=== PATIENT | female | born 1970 | race African-American/Black ===

== ENCOUNTER 2022-04-16 15:26 | Emergency (ER) | payer MEDICAID ==
[~2022-04-16] VITALS: Ht 170.2 cm; Wt 113.4 kg
[2022-04-16 15:40] VITALS: BP 146/88
[2022-04-16] MEDS ORDERED: KETOROLAC TROMETH 60MG/2ML VIAL IM ONE (16:30)
[2022-04-16] MEDS ORDERED: PRED20TA2 PO (17:03)
[2022-04-16] MEDS ORDERED: TRAM-297 PO (17:03)
== END 2022-04-16 17:23 | disposition short-term general hospital (02) ==
LOC: ER 15:26
DX: M51.37 Other intervertebral disc degeneration, lumbosacral region (principal); M54.16 Radiculopathy, lumbar region; G89.29 Other chronic pain; M54.50 Low back pain, unspecified; Z88.0 Allergy status to penicillin; Z88.5 Allergy status to narcotic agent; Z91.040 Latex allergy status
CPT/HCPCS: 72100; 96372; 99283; J1885

== ENCOUNTER 2022-07-31 18:43 | Emergency (ER) | payer MEDICAID ==
[~2022-07-31] VITALS: Ht 170.2 cm; Wt 105.5 kg
[~2022-07-31 18:43] MED LIST: PRED20TA2 PO; TRAM-297 PO
[2022-07-31] MEDS ORDERED: ONDANSETRON ODT 4 MG TAB PO ONE (19:45)
[2022-07-31 20:09] LABS: Basophils # (auto) 0.1 10 ^3/uL (0-0.2); Eosinophils # (auto) 0.2 10 ^3/uL (0-0.8); Eosinophils % (auto) 1.6 % (0.0-7.0); Hematocrit 42.6 % (36.0-46.0); Hemoglobin 13.5 g/dL (12.2-16.2); Lymphocytes % (auto) 18.1 % (10.0-50.0); Mean Corpuscular Hemoglobin 29.8 pg (28.0-32.0); Mean Corpuscular Hgb Conc. 31.7 g/dL (32.0-36.0); Mean Corpuscular Volume 94.1 fL (80.0-100.0); Monocytes # (auto) 0.7 10 ^3/uL (0-1.3); Monocytes % (auto) 6.1 % (0.0-12.0); Neutrophils # (auto) 7.9 10 ^3/uL (1.6-8.6); Neutrophils % (auto) 73.2 % (37.0-80.0); Nucleated Red Blood Cells % 0.1 %; Red Blood Cells 4.52 10^6/uL (4.0-5.20); Red Cell Distribution Width 13.2 % (11.8-14.3); White Blood Cell 10.8 10^3/uL (4.4-10.8)
[2022-07-31 20:39] LABS: Albumin 3.5 g/dL (3.4-5.0); Calcium 9.3 mg/dL (8.5-10.1); Potassium 3.7 mmol/L (3.5-5.1)
[2022-07-31 20:41] LABS: Bilirubin, Total 0.7 mg/dL (0.2-1.0); Total Protein 7.3 g/dL (6.4-8.2)
[2022-08-01] MEDS ORDERED: IOHEXOL 350 MG/ML 100ML IJ ONE (00:08)
[2022-08-01] MEDS ORDERED: diphenhdrAMINE HCL 50 MG/1 ML VL IV ONE (02:30)
[2022-08-01] MEDS ORDERED: methylPREDNISolone SOD SUCC 125 MG/2 ML VL IV ONE (02:30)
[2022-08-01 05:05] VITALS: BP 95/50
[2022-08-01] MEDS ORDERED: FAMO20TA10 PO (05:16)
[2022-08-01] MEDS ORDERED: ONDA-144 PO (05:17)
== END 2022-08-01 05:56 | disposition home or self-care (01) ==
LOC: ER 18:44
DX: K21.9 Gastro-esophageal reflux disease without esophagitis (principal); I10 Essential (primary) hypertension; Z90.49 Acquired absence of other specified parts of digestive tract; Z79.899 Other long term (current) drug therapy; Z88.0 Allergy status to penicillin; Z88.5 Allergy status to narcotic agent; Z91.010 Allergy to peanuts
CPT/HCPCS: 36415; 71045; 71275; 80053; 83690; 84484; 85025; 85379; 93005; 96374; 96375; 99285; J1200; J2930; Q0162; Q9967

== ENCOUNTER 2024-07-21 06:59 | Emergency (ER) | payer MEDICAID ==
[~2024-07-21] VITALS: Ht 170.2 cm; Wt 119.3 kg
[~2024-07-21 06:59] MED LIST changes: +FAMO20TA10 PO; +ONDA-144 PO
[2024-07-21 07:38] VITALS: BP 156/108; PULSE 102; RESP 18; O2SAT 100
[2024-07-21] MEDS: methylPREDNISolone SOD SUCC 125 MG/2 ML VL IM ONE (07:58)
[2024-07-21] MEDS: EPINEPHrine HCL 1 MG/1 ML AMP SC ONE (07:59)
[2024-07-21 08:00] VITALS: TEMP 97.6
[2024-07-21] MEDS: ACETAMINOPHEN 500 MG TAB PO ONE (08:00)
[2024-07-21] MEDS ORDERED: HYDR50TA69 PO (08:16)
== END 2024-07-21 08:21 | disposition home or self-care (01) ==
LOC: ER 06:59
DX: T78.40XA Allergy, unspecified, initial encounter (principal); I10 Essential (primary) hypertension; Z88.0 Allergy status to penicillin; Z88.8 Allergy status to other drugs, medicaments and biological substances; Z79.899 Other long term (current) drug therapy; Z90.49 Acquired absence of other specified parts of digestive tract; X58.XXXA Exposure to other specified factors, initial encounter
CPT/HCPCS: 96372; 99284; J0171; J2919